=== PATIENT | female | born 1995 | race Caucasian/White ===

== ENCOUNTER 2016-10-26 18:36 | Emergency (ER) | payer MEDICAID ==
[~2016-10-26] VITALS: Ht 167.6 cm; Wt 80.9 kg
--- NOTE | 2016-10-26 18:47 | ERD ---
ER Documentation Chief Complaint Date/Time DATE: 10/26/16 TIME: 18:43 Chief Complaint HPI 21-year-old female who presents emergency room with a left patella dislocation. Just prior to arrival she was exercising and performing squats. She had a lateral dislocation of the left patella. She describes severe pain only moderately improved by 80 mg of morphine. The patient states a prior history of dislocation in the past. She denies any other injuries. ROS All systems reviewed and are negative except as per history of present illness. Medications Home Meds Active Scripts Hydrocodone/Acetaminophen ([place] 10-325 Tablet) 1 Each Tablet, 1 TAB PO Q6H Y for PAIN, #7 TAB Prov:APARNA BANKS MD 10/26/16 Ondansetron (Ondansetron Odt) 4 Mg Tab.rapdis, 4 MG PO Q6H Y for NAUSEA AND/OR VOMITING, #30 TAB Prov:APARNA BANKS MD 10/26/16 Ibuprofen* (Motrin*) 800 Mg Tab, 800 MG PO Q6H Y for PAIN AND OR ELEVATED TEMP, #30 TAB Prov:APARNA BANKS MD 10/26/16 Allergies Allergies: Coded Allergies: Penicillins (Verified Allergy, Unknown, rash, 10/26/16) FmHx Family History: No diabetes Physical Exam Vitals Vital Signs Date Time Temp Pulse Resp B/P Pulse Ox O2 Delivery O2 Flow Rate FiO2 10/26/16 18:48 98.7 102 20 143/90 99 Physical Exam General: Well developed, well nourished, uncomfortable Head: Normocephalic, atraumatic. Eyes: Pupils equally reactive, EOM intact ENT: Moist mucous membranes Neck: Supple, no lymphadenopathy Respiratory: Lungs clear bilaterally, no distress Cardiovascular: RRR, no murmurs, rubs, or gallops Abdominal: Soft, non-tender, non-distended, no peritoneal signs : Deferred MSK: The patient has clinical signs and symptoms of lateral dislocation of the left patella. The patient has no other ligamentous instability, 2+ dorsalis pedis and posterior tibial pulses, no significant effusion. Neurologic: Alert and oriented, moving all extremities, normal speech, no focal weakness, no cerebellar signs Skin: No rash Psych: Normal mood Procedures/MDM EKG, MONITORS, & DIAGNOSTIC IMAGING: X-ray left knee: I reviewed and interpreted multiple views of the x-ray Bones: No evidence of acute fracture dislocation or subluxation Soft tissue: No evidence of foreign body PROCEDURES: Closed reduction: The patient and/or family members were verbally consented for the procedure understanding the risks, benefits, alternatives. The document was signed and placed in the chart. Time out was performed. Indication: Left patella dislocation Location: Left lower extremity Technique: By fully extending the patient's left lower extremity with gentle traction and lateral to medial and superior pressure to the patella I was able to successfully reduce the patella without difficulty. Neurovascular exam: The patient was neurovascularly intact distal to the injury both prior to and status post closed reduction The patient had improvement in anatomic alignment, tolerated the procedure well without complications. Splint Application Note: Splint type: Left knee immobilizer Extremity: Left knee Indication: Left patella dislocation The patient was consented at bedside prior to splint application and states understanding of risks, benefits, and alternatives. The patient was neurovascularly intact prior to and status post application of the splint. The patient tolerated the procedure well and there were no complications. MEDICAL DECISION MAKING: The patient has clinical evidence of a lateral dislocation of the left patella. No evidence of significant ligamentous damage, no evidence of knee fracture. This is not consistent with any dislocation and low concern for vascular injury. ER COURSE: I was able to perform closed reduction of the knee upon arrival. The patient had received 8 mg of morphine and pain was well controlled. Documentation as placed above. The patient was immobilized and will be given outpatient orthopedic follow-up. The patient's pain is improved and well controlled at this time. I kept the patient and/or family informed of laboratory and diagnostic imaging results throughout the emergency room course. DISPOSITION PLAN: We discussed follow up with the patient's primary care doctor within 24 to 48 hours as needed. We also discussed return to the emergency room for worsening symptoms or worsening condition. Outpatient referral: Orthopedic surgery Discharge Medications: [place], Zofran, Motrin We discussed the use of narcotics including avoidance of operating heavy machinery and driving as well as its addictive properties. Departure Diagnosis: Primary Impression: Patellar dislocation Encounter type: initial encounter Laterality: left Qualified Code: S83.005A - Patellar dislocation, left, initial encounter Condition: APARNA Dalton MD October 26, 2016 18:47
[2016-10-26 18:48] VITALS: Ht 167.6 cm; Wt 80.9 kg
--- NOTE | 2016-10-26 19:30 | RADRPT ---
PROCEDURE: Left knee radiographs. CLINICAL INDICATION: Left knee pain. History of patellar dislocation and recent reduction. TECHNIQUE: Three views. Weight bearing. Frontal, lateral, and oblique. COMPARISON: No prior studies are available for comparison. FINDINGS: There is no fracture or dislocation. The soft tissues are normal. Articular surfaces are intact. There is no lytic or blastic lesion. There is no radiopaque foreign body. IMPRESSION: 1. Normal images of the left knee. RPTAT: QQ .Deng Jamil MD, Date Time Electronically viewed and signed by .Deng Jamil MD, on 10/26/2016 19:30 .R/
[2016-10-26] MEDS ORDERED: IBUP800T25 PO (19:34)
[2016-10-26] MEDS ORDERED: ONDA4TAB14 PO (19:34)
[2016-10-26] MEDS ORDERED: HYDR-902 PO (19:34)
== END 2016-10-26 19:25 | disposition home or self-care (01) ==
LOC: E/R 18:36
DX: S83.015A Lateral dislocation of left patella, initial encounter (principal); R40.2142 Coma scale, eyes open, spontaneous, at arrival to emergency department; R40.2252 Coma scale, best verbal response, oriented, at arrival to emergency department; R40.2362 Coma scale, best motor response, obeys commands, at arrival to emergency department; X50.1XXA Overexertion from prolonged static or awkward postures, initial encounter; Y92.9 Unspecified place or not applicable
CPT/HCPCS: 73562